=== PATIENT | male | born 1945 | race Caucasian/White ===

== ENCOUNTER 2016-10-09 14:00 | Emergency (ER) | payer OTHER ==
[2016-10-09 14:43] VITALS: TEMP 97.2
[2016-10-09] MEDS ORDERED: HYDROcodone 7.5MG/APAP 325MG 1 EA TAB PO ONE (14:56)
[2016-10-09] MEDS ORDERED: methylPREDNISolone SODIUM SUC 125 MG/2 ML VIAL IM ONE (14:56)
--- NOTE | 2016-10-09 14:59 | ED.PDOC ---
History of Present Illness - General Chief Complaint: Back Pain or Injury Stated Complaint: back pain Time Seen by Provider: 10/09/16 14:45 Source: patient, RN notes reviewed, Vital Signs reviewed, family Exam Limitations: no limitations - History of Present Illness Initial Comments: Patient with chronic back issues and a herniated disc that impinges on L4 nerve root occasionally. Was moving boxes yesterday and has now developed some R low back pain that is radiating down his buttock into his thigh. He is followed by neurologist in [facility]. Timing/Duration: 24 hours Quality/Severity: moderate, burning, dullness Back Pain Location: lumbar spine Back Pain Radiation: buttocks - on Right, upper legs - on Right Improving Factors: nothing Worsening Factors: movement Associated Symptoms: lower back pain Allergies/Adverse Reactions: Allergies NO KNOWN ALLERGY Allergy (Verified 10/09/16 14:42) Home Medications: Ambulatory Orders Acetaminophen W/ Codeine [Tylenol W/ CODEINE #3] 1 ea PO Q4HR PRN #20 10/09/16 Methylprednisolone [Medrol Dose Emigdio] 4 mg PO DAILY #1 pack 10/09/16 Review of Systems - Review of Systems Constitutional: States: no symptoms reported EENTM: States: no symptoms reported Respiratory: States: no symptoms reported Cardiology: States: no symptoms reported Gastrointestinal/Abdominal: States: no symptoms reported Genitourinary: States: no symptoms reported Musculoskeletal: States: see HPI, back pain - R low back Skin: States: no symptoms reported Neurological: States: see HPI. Denies: numbness, paresthesia, weakness Endocrine: States: no symptoms reported Past Medical History (General) - Patient Medical History Hx Cardiac Disorders: Yes - [place], CABG Surgical History: appendectomy - Vaccination History Hx Influenza Vaccination: No - Social History Hx Tobacco Use: No Hx Alcohol Use: No Hx Substance Use: No Hx Depression: No - Activities of Daily Living Hospice Agency (if applicable):: None - Female History Patient is a Female of Child Bearing Age (10 -59 yrs old): No Patient : No Family Medical History - Family History Mother Family History: Unknown Physical Exam - Physical Exam General Appearance: Alert, Comfortable, No apparent distress, Well Developed, Well Groomed, Well Hydrated, Well Nourished Neck Exam: non-tender, full range of motion, normal alignment, normal inspection Cardiovascular/Respiratory: regular rate, rhythm, no M/R/G, no JVD, normal breath sounds, no respiratory distress Back Exam: normal inspection, no CVA tenderness, no vertebral tenderness Extremity Exam: no evidence of injury, normal range of motion, non-tender, no pedal edema Neurologic: no motor/sensory deficits, alert, normal mood/affect, oriented x 3, other - 2+ DTR B knees, negative straight leg raise Skin Exam: normal color, warm/dry Departure - Departure Clinical Impression: Sciatica, Degeneration of lumbosacral intervertebral disc Time of Disposition: 15:20 Disposition: Discharge to Home or Self Care Condition: Good Departure Forms: ED Discharge - Pt. Copy, Patient Portal Self Enrollment Instructions: DI for Back Pain With Sciatica Diet: resume usual diet Activity: increase activity as tolerated Prescriptions: Acetaminophen W/ Codeine [Tylenol W/ CODEINE #3] 1 ea PO Q4HR PRN #20 PRN Reason: Moderate To Severe Pain Methylprednisolone [Medrol Dose Emigdio] 4 mg PO DAILY #1 pack Home Medications: Ambulatory Orders Acetaminophen W/ Codeine [Tylenol W/ CODEINE #3] 1 ea PO Q4HR PRN #20 10/09/16 Methylprednisolone [Medrol Dose Emigdio] 4 mg PO DAILY #1 pack 10/09/16 Additional Instructions: Follow up with your Doctor in 2-5 days
[2016-10-09 15:47] VITALS: BP 154/76; O2SAT 96
== END 2016-10-09 15:46 | disposition home or self-care (01) ==
LOC: ER 14:00
DX: M54.30 Sciatica, unspecified side (principal); M51.36 Other intervertebral disc degeneration, lumbar region; I25.2 Old myocardial infarction; Z95.1 Presence of aortocoronary bypass graft

== ENCOUNTER 2017-08-26 13:03 | Emergency (ER) | payer MEDICARE, OTHER ==
--- NOTE | 2017-08-26 13:22 | ED.PDOC ---
History of Present Illness - General Chief Complaint: General Stated Complaint: cough Time Seen by Provider: 08/26/17 13:15 Source: patient, RN notes reviewed, Vital Signs reviewed Exam Limitations: no limitations - History of Present Illness Timing/Duration: other - three days Severity: moderate Improving Factors: nothing Worsening Factors: nothing Associated Symptoms: cough Allergies/Adverse Reactions: Allergies NO KNOWN ALLERGY Allergy (Verified 10/09/16 14:42) Home Medications: Ambulatory Orders Acetaminophen W/ Codeine [Tylenol W/ CODEINE #3] 1 ea PO Q4HR PRN #20 10/09/16 Methylprednisolone [Medrol Dose Emigdio] 4 mg PO DAILY #1 pack 10/09/16 Albuterol Inhaler [Ventolin Hfa Inhaler] 108 mcg IN Q4HR #1 inh 08/26/17 Review of Systems - Review of Systems Constitutional: States: fever, malaise EENTM: States: nose congestion, throat pain Respiratory: States: cough. Denies: short of breath, wheezing Cardiology: Denies: chest pain Gastrointestinal/Abdominal: Denies: abdominal pain, diarrhea, nausea, vomiting Genitourinary: States: no symptoms reported Musculoskeletal: Denies: joint pain, muscle pain Skin: States: no symptoms reported Neurological: States: weakness. Denies: headache Past Medical History (General) - Patient Medical History Hx Cardiac Disorders: Yes - [place], CABG - Vaccination History Hx Influenza Vaccination: No - Social History Hx Tobacco Use: No Hx Alcohol Use: No Hx Substance Use: No Hx Depression: No - Female History Patient : No Family Medical History - Family History Mother Family History: Unknown Physical Exam - Physical Exam General Appearance: Alert, Lethargic Eye Exam: bilateral normal Ears, Nose, Throat: hearing grossly normal, pharyngeal erythema Neck: non-tender, full range of motion, supple Respiratory: chest non-tender, lungs clear, normal breath sounds, no respiratory distress Cardiovascular/Chest: normal peripheral pulses, regular rate, rhythm, no edema Gastrointestinal/Abdominal: non tender, soft Neurologic: alert, normal mood/affect, oriented x 3 Skin Exam: normal color, warm/dry Progress - EKG/XRAY/CT XRAY: chest - no pneumonia Departure - Departure Clinical Impression: Influenza Disposition: Discharge to Home or Self Care Departure Forms: ED Discharge - Pt. Copy, Patient Portal Self Enrollment Prescriptions: Albuterol Inhaler [Ventolin Hfa Inhaler] 108 mcg IN Q4HR #1 inh Home Medications: Ambulatory Orders Acetaminophen W/ Codeine [Tylenol W/ CODEINE #3] 1 ea PO Q4HR PRN #20 10/09/16 Methylprednisolone [Medrol Dose Emigdio] 4 mg PO DAILY #1 pack 10/09/16 Albuterol Inhaler [Ventolin Hfa Inhaler] 108 mcg IN Q4HR #1 inh 08/26/17
[2017-08-26] MEDS ORDERED: IPRATROPIUM/ALBUTEROL 3 ML VIAL NEB ONE (13:46)
--- NOTE | 2017-08-26 14:02 | RAD ---
EXAM DESCRIPTION: Chest,1 View CLINICAL HISTORY: Cough COMPARISON: None available IMPRESSION: Single upright portable frontal view of the chest. Postsurgical changes with median sternotomy wires. Cardiac silhouette and pulmonary vascularity are within normal limits. Calcific atherosclerosis noted of the thoracic aorta. Minimal linear opacities in the bilateral lung bases, most likely representing atelectasis. Otherwise, lungs are clear without focal consolidative infiltrates. Bilateral costophrenic angles are sharp. No pneumothorax. Electronically signed by: Ronni Wang MD 08/26/2017 2:01 PM [facility]
[2017-08-26 15:13] VITALS: BP 110/50; TEMP 100; O2SAT 92
== END 2017-08-26 14:45 | disposition home or self-care (01) ==
LOC: ER 13:03
DX: J11.1 Influenza due to unidentified influenza virus with other respiratory manifestations (principal); I25.2 Old myocardial infarction
CPT/HCPCS: 71045; 87804; 94640; J7620

== ENCOUNTER 2017-09-04 12:56 | Emergency (ER) | payer MEDICARE, OTHER ==
--- NOTE | 2017-09-04 13:29 | ED.PDOC ---
History of Present Illness - General Chief Complaint: Respiratory Problem Stated Complaint: cough Time Seen by Provider: 09/04/17 13:23 Source: patient, RN notes reviewed Additional Information: 72 YEAR OLD WHITE MALE SECOND VISIT IN A WEEK WAS SEEN LAST WEEK FOR COUGH SCREENED FOR FLU AND PNEUMONIA THEY WERE REPORTED NEG HE RETURNS TODAY HIS COUGH HAS TURNED PRODUCTIVE AND IT IS WORSE CANT SLEEP AT NIGHT HOWEVER HE HAS NO FEVER CHILLS NO CHEST PAIN NO ANOREXIA HE IS PAST HEAVY SMOKER HAS HAD CABAG PAD SEVERAL STENTS IN HIS LOWER EXTREMITIES - History of Present Illness Timing/Duration: 1 week Severity: mild Improving Factors: nothing Worsening Factors: nothing Associated Symptoms: cough Allergies/Adverse Reactions: Allergies Iodine Allergy (Verified 09/04/17 13:21) Shellfish Allergy Allergy (Verified 09/04/17 13:21) Home Medications: Ambulatory Orders Acetaminophen W/ Codeine [Tylenol W/ CODEINE #3] 1 ea PO Q4HR PRN #20 10/09/16 Methylprednisolone [Medrol Dose Emigdio] 4 mg PO DAILY #1 pack 10/09/16 Albuterol Inhaler [Ventolin Hfa Inhaler] 108 mcg IN Q4HR #1 inh 08/26/17 Azithromycin Susp 200Mg/5Ml [Zithromax Susp 200mg/5ml] 250 mg PO Q24HR 5 Days tablet 09/04/17 Methylprednisolone [Medrol Dose Emigdio] 4 mg PO Q24HR #28 tab 09/04/17 Review of Systems - Review of Systems Constitutional: States: see HPI EENTM: States: no symptoms reported Respiratory: States: cough Cardiology: States: no symptoms reported Gastrointestinal/Abdominal: States: no symptoms reported Genitourinary: States: no symptoms reported Skin: States: no symptoms reported Neurological: States: no symptoms reported Endocrine: States: no symptoms reported Hematologic/Lymphatic: States: no symptoms reported Past Medical History (General) - Patient Medical History Hx Stroke: No Hx Cardiac Disorders: Yes - [place], CABG Hx Congestive Heart Failure: No Hx Hypertension: Yes Hx Diabetes: No Surgical History: coronary bypass surgery - Vaccination History Hx Influenza Vaccination: Yes Hx Pneumococcal Vaccination: Yes - Social History Hx Tobacco Use: No Hx Alcohol Use: No Hx Substance Use: No Hx Depression: No - Female History Patient : No Family Medical History - Family History Mother Family History: Unknown Living Status: Physical Exam - Physical Exam General Appearance: Alert, Comfortable Eye Exam: bilateral normal Ears, Nose, Throat: hearing grossly normal, normal ENT inspection, normal pharynx Neck: non-tender, full range of motion, supple Cardiovascular/Chest: normal peripheral pulses, regular rate, rhythm, no edema, no gallop, no JVD, no murmur Peripheral Pulses: radial,right: 2+, radial,left: 2+, femoral,right: 2+, femoral ,left: 2+, popliteal,right: 2+, popliteal,left: 2+ Gastrointestinal/Abdominal: soft, no organomegaly, no pulsatile mass Back Exam: normal inspection, no CVA tenderness, no vertebral tenderness Extremity: normal range of motion, non-tender 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 Copy, Patient Portal Self Enrollment Diet: resume usual diet Prescriptions: Azithromycin Susp 200Mg/5Ml [Zithromax Susp 200mg/5ml] 250 mg PO Q24HR 5 Days tablet Methylprednisolone [Medrol Dose Emigdio] 4 mg PO Q24HR #28 tab Home Medications: Ambulatory Orders Acetaminophen W/ Codeine [Tylenol W/ CODEINE #3] 1 ea PO Q4HR PRN #20 10/09/16 Methylprednisolone [Medrol Dose Emigdio] 4 mg PO DAILY #1 pack 10/09/16 Albuterol Inhaler [Ventolin Hfa Inhaler] 108 mcg IN Q4HR #1 inh 08/26/17 Azithromycin Susp 200Mg/5Ml [Zithromax Susp 200mg/5ml] 250 mg PO Q24HR 5 Days tablet 09/04/17 Methylprednisolone [Medrol Dose Emigdio] 4 mg PO Q24HR #28 tab 09/04/17
[2017-09-04 13:42] VITALS: BP 147/62; TEMP 97.8; O2SAT 96
[2017-09-04] MEDS: DEXAMETHASONE INJ 10 MG/ML VIAL IM ONE (13:54)
== END 2017-09-04 13:50 | disposition home or self-care (01) ==
LOC: ER 12:56
DX: J20.9 Acute bronchitis, unspecified (principal); I10 Essential (primary) hypertension; I25.2 Old myocardial infarction; Z95.1 Presence of aortocoronary bypass graft